=== PATIENT | male | born 1990 | race Caucasian/White ===

== ENCOUNTER 2024-01-28 17:38 | Emergency (ER) | payer MEDICAID, OTHER ==
[~2024-01-28] VITALS: Ht 172.7 cm; Wt 86.4 kg
[2024-01-28 17:42] VITALS: BP 152/98; PULSE 118; RESP 18; TEMP 99.2; O2SAT 97
[2024-01-28] MEDS ORDERED: TRIA15CR49 TP (18:19)
[2024-01-28] MEDS ORDERED: CEPH-558 PO (18:19)
[2024-01-28] MEDS ORDERED: PRED-554 PO (18:19)
[2024-01-28] MEDS ORDERED: DIPH50CA37 PO (18:19)
[2024-01-28] MEDS: MethylPREDNISolone SOD SUCC 125 MG/2 ML VIAL IM ONE (18:40)
[2024-01-28] MEDS: DiphenhydrAMINE HCL 50 MG/ML VIAL IM ONE (18:40)
== END 2024-01-28 18:50 | disposition home or self-care (01) ==
LOC: EMS 17:38
DX: L03.114 Cellulitis of left upper limb (principal); L03.113 Cellulitis of right upper limb; L50.0 Allergic urticaria; Z79.52 Long term (current) use of systemic steroids; W57.XXXA Bitten or stung by nonvenomous insect and other nonvenomous arthropods, initial encounter
CPT/HCPCS: 99285; 96372; J1200; J2919; 99284